=== PATIENT | female | born 1995 | race Caucasian/White ===

== ENCOUNTER 2016-09-29 10:57 | Emergency (ER) | payer BC ==
[~2016-09-29] VITALS: Ht 165.1 cm; Wt 57.0 kg
[2016-09-29 10:58] VITALS: BP 112/69; PULSE 88; RESP 24; TEMP 97.9; O2SAT 100
[2016-09-29] MEDS ORDERED: SODIUM CHLOR 0.9% 1000 ML INJ 1,000 ML IV SCH ×2 (11:23→12:19)
[2016-09-29] MEDS ORDERED: LEXA5TAB PO (11:24)
[2016-09-29] MEDS ORDERED: ADDE20 PO (11:24)
[2016-09-29] MEDS ORDERED: FAMOTIDINE 20 MG/2 ML VIAL IV PUSH ONE (11:30)
[2016-09-29] MEDS ORDERED: ONDANSETRON HCL 4 MG/2 ML VIAL IVP ONE (11:30)
--- NOTE | 2016-09-29 11:31 | PD ---
HPI Chief Complaint: GI Complaint Time Seen by Provider: 11:27 Travel History International Travel<30 days: No Contact w/Intl Traveler<30days: No Traveled to known affect area: No History of Present Illness HPI 21-year-old female that presents to the ED for evaluation of nausea vomiting and alcohol intoxication. Per patient she was at a green party yesterday and she drank "way too much ". Per patient she also smoked pot. She denies any chest pain or shortness of breath. Per patient she doesn't usually do this but throughout the night she's not been able to keep anything down and she continues to throw up which is what brought her here. She states that she has a slight headache. She states that the pain is minimal.She is feels weak and tired. Has no allergies to medication. Has not taken anything for this. She' s been trying to hydrate orally but no success secondary to throwing up. Denies any other drug abuse. Denies any urinary issues. No bowel movement issues. Denies any blood on the vomit. Denies possibility of . PFSH Past Medical History Hx Anticoagulant Therapy: No Cardiovascular Problems: No Chemotherapy: No Cerebrovascular Accident: No Diabetes: No Respiratory: No ?: Not LMP: 09/23/16 Past Surgical History Hysterectomy: No Social History Alcohol Use: Yes Tobacco Use: No Substance Use: No Allergies-Medications (Allergen,Severity, Reaction): Coded Allergies: No Known Allergies (Unverified , 09/29/16) Reported Meds & Prescriptions Reported Meds & Active Scripts Active Zofran (Ondansetron HCl) 4 Mg Tab 4 Mg PO Q6HR PRN Reported Lexapro (Escitalopram Oxalate) 5 Mg Tab 5 Mg PO DAILY Adderall (Amphetamine-Dextroamphetamine) 20 Mg Tab 25 Mg PO DAILY Avoid late evening doses. Space doses at least 4 to 6 hours if more than once/day dosing. Review of Systems Except as stated in HPI: all other systems reviewed are Neg Physical Exam Narrative GENERAL: SKIN: Warm and dry. Patient has puncture like skin rash on the lower legs bilaterally. HEAD: Atraumatic. Normocephalic. EYES: Pupils equal and round. No scleral icterus. No injection or drainage. ENT: No nasal bleeding or discharge. Mucous membranes pink and moist. Tongue is midline. No uvula deviation. NECK: Trachea midline. No JVD. CARDIOVASCULAR: Regular rate and rhythm. No murmurs, S3, S4. RESPIRATORY: No accessory muscle use. Clear to auscultation. Breath sounds equal bilaterally. GASTROINTESTINAL: Abdomen soft, non-tender, nondistended. Hepatic and splenic margins not palpable. MUSCULOSKELETAL: Extremities without clubbing, cyanosis, or edema. No obvious deformities. No lumbar, thoracic, cervical spine tenderness to palpation. Full range of motion of the upper and lower extremities bilaterally. 2+ pulses bilaterally. NEUROLOGICAL: Awake and alert. No obvious cranial nerve deficits. Motor grossly within normal limits. Five out of 5 muscle strength in the arms and legs. Normal speech. PSYCHIATRIC: Appropriate mood and affect; insight and judgment normal. Data Data Last Documented VS Vital Signs Date Time Temp Pulse Resp B/P Pulse Ox O2 Delivery O2 Flow Rate FiO2 09/29/16 10:58 97.9 88 24 112/69 100 Room Air Orders Complete Blood Count With Diff (09/29/16 11:23) Comprehensive Metabolic Panel (09/29/16 11:23) Lipase (09/29/16 11:23) Urinalysis - C+S If Indicated (09/29/16 11:23) Iv Access Insert/Monitor (09/29/16 11:23) Ed Urine Pregnancytest Poc (09/29/16 11:23) Drug Screen, Random Urine (09/29/16 11:23) Alcohol (Ethanol) (09/29/16 11:23) Ondansetron Inj (Zofran Inj) (09/29/16 11:30) Sodium Chlor 0.9% 1000 Ml Inj (Ns 1000 M (09/29/16 11:23) Famotidine Inj (Pepcid Inj) (09/29/16 11:30) Ketorolac Inj (Toradol Inj) (09/29/16 12:15) Sodium Chlor 0.9% 1000 Ml Inj (Ns 1000 M (09/29/16 12:19) Labs Laboratory Tests Test 09/29/16 11:30 White Blood Count 9.7 TH/MM3 Red Blood Count 4.26 MIL/MM3 Hemoglobin 13.1 GM/DL Hematocrit 37.9 % Mean Corpuscular Volume 89.0 FL Mean Corpuscular Hemoglobin 30.7 PG Mean Corpuscular Hemoglobin 34.5 % Concent Red Cell Distribution Width 12.7 % Platelet Count 274 TH/MM3 Mean Platelet Volume 8.7 FL Neutrophils (%) (Auto) 85.7 % Lymphocytes (%) (Auto) 10.3 % Monocytes (%) (Auto) 3.3 % Eosinophils (%) (Auto) 0.1 % Basophils (%) (Auto) 0.6 % Neutrophils # (Auto) 8.3 TH/MM3 Lymphocytes # (Auto) 1.0 TH/MM3 Monocytes # (Auto) 0.3 TH/MM3 Eosinophils # (Auto) 0.0 TH/MM3 Basophils # (Auto) 0.1 TH/MM3 CBC Comment DIFF FINAL Differential Comment Urine Color YELLOW Urine Turbidity CLEAR Urine pH 8.5 Urine Specific [place] 1.017 Urine Protein 30 mg/dL Urine Glucose (UA) NEG mg/dL Urine Ketones NEG mg/dL Urine Occult Blood SMALL Urine Nitrite NEG Urine Bilirubin NEG Urine Urobilinogen LESS THAN 2.0 MG/DL Urine Leukocyte Esterase NEG Urine RBC LESS THAN 1 /hpf Urine WBC 1 /hpf Urine Squamous Epithelial 4 /hpf Cells Urine Renal Epithelial Cells <1 /hpf Urine Mucus FEW /lpf Microscopic Urinalysis Comment CULT NOT INDICATED Sodium Level 140 MEQ/L Potassium Level 3.6 MEQ/L Chloride Level 106 MEQ/L Carbon Dioxide Level 23.0 MEQ/L Anion Gap 11 MEQ/L Blood Urea Nitrogen 9 MG/DL Creatinine 0.74 MG/DL Estimat Glomerular Filtration 98 ML/MIN Rate Random Glucose 109 MG/DL Calcium Level 9.0 MG/DL Total Bilirubin 0.4 MG/DL Aspartate Amino Transf 20 U/L (AST/SGOT) Alanine Aminotransferase 35 U/L (ALT/SGPT) Alkaline Phosphatase 42 U/L Total Protein 7.6 GM/DL Albumin 3.9 GM/DL Lipase 68 U/L Urine Opiates Screen NEG Urine Barbiturates Screen NEG Urine Amphetamines Screen NEG Urine Benzodiazepines Screen NEG Urine Cocaine Screen NEG Urine Cannabinoids Screen NEG Ethyl Alcohol Level LESS THAN 3 MG/DL MDM Medical Decision Making Medical Screen Exam Complete: Yes Emergency Medical Condition: Yes Medical Record Reviewed: Yes Interpretation(s) CBC & BMP Diagram 09/29/16 11:30 Tox negative LFTS WNL UA negative Differential Diagnosis Alcohol withdrawal versus alcohol poisoning versus alcohol intoxication versus hangover versus dehydration versus intractable vomiting versus substance abuse Narrative Course 21-year-old female that presents to the ED for evaluation of nausea vomiting after alcohol use. The patient was properly examined and was found to have signs and symptoms consistent appears to be likely hangover. At this time I recommend labs as well as antiemetics and IV fluids to help with the symptoms. Patient is in agreement with this plan. Labs and imaging showed no sign of acute disease. Patient was reassured. At this time this appears to be vomiting secondary to alcohol intoxication. Patient was reassessed after medications and she does feel very improved. Patient was given a liter of fluids. Patient will be sent home with prescription for Zofran. Patient was console on avoiding alcohol for at least a couple days to a week. See ED worsening symptoms. Follow with PCP. Diagnosis Primary Impression: Alcohol use Additional Impression: Vomiting Qualified Code: R11.2 - Non-intractable vomiting with nausea, unspecified vomiting type Patient Instructions: General Instructions Departure Forms: Tests/Procedures, Work Release Enter return to work date: October 01, 2016 Additional Instructions: Take med as prescribed. F/u with PCP. See ED if worsening symptoms. Drink plenty of fluids. Med/Other Pt SpecificInfo: Prescription(s) given Scripts Ondansetron (Zofran)4 Mg Tab4 Mg PO Q6HR PRN (NAUSEA OR VOMITING) #20 TAB Prov:Constantino Jacobs MD 09/29/16 Disposition: 01 DISCHARGE HOME Condition: Stable Ivan Hawley September 29, 2016 11:31
[2016-09-29 11:44] LABS: AUTOMATED NEUTROPHIL # 8.3 TH/MM3 (1.8-7.7); BASOPHIL # 0.1 TH/MM3 (0-0.2); BASOPHIL % 0.6 % (0.0-2.0); BLOOD, URINE SMALL (NEG); EOSINOPHIL % 0.1 % (0.0-4.0); GLUCOSE,URINE NEG (NEG); HEMATOCRIT 37.9 % (35.0-46.0); HEMO FLAGS DIFF FINAL; KETONE, URINE NEG (NEG); LYMPH % 10.3 % (9.0-44.0); MEAN CORPUSCULAR HEMOGLOBIN 30.7 PG (27.0-34.0); MEAN CORPUSCULAR HGB CONC 34.5 % (32.0-36.0); MONO % 3.3 % (0.0-8.0); MUCUS URINE FEW /lpf (OCC); NEUT % 85.7 % (16.0-70.0); NITRITE,URINE NEG (NEG); PH, URINE 8.5 (5.0-8.5); PLATELET COUNT 274 TH/MM3 (150-450); RED BLOOD COUNT 4.26 MIL/MM3 (4.00-5.30); RED CELL DISTRIBUTION WIDTH 12.7 % (11.6-17.2); RENAL EPITHELIAL CELLS <1 /hpf; SQUAMOUS EPITHELIAL CELL URINE 4 /hpf (0-5); URINE COLOR YELLOW (YELLW/STRAW); WHITE BLOOD COUNT 9.7 TH/MM3 (4.0-11.0)
[2016-09-29 11:45] LABS: COMMENT (UR) CULT NOT INDICATED; CULTURE IF INDICATED CULT NOT INDICATED
[2016-09-29 11:53] LABS: AMPHETAMINE, URINE NEG (NEG); BARBITURATES, URINE NEG (NEG); COCAINE, URINE NEG (NEG)
[2016-09-29 12:09] LABS: ANION GAP 11 MEQ/L (5-15)
[2016-09-29 12:12] LABS: ALKALINE PHOSPHATASE 42 U/L (45-117); ALT (GPT) 35 U/L (10-53); AST (GOT) 20 U/L (15-37); BLOOD UREA NITROGEN 9 MG/DL (7-18); CHLORIDE 106 MEQ/L (98-107); GLOMERULAR FILTRATION RATE 98 ML/MIN (>89); POTASSIUM 3.6 MEQ/L (3.5-5.1); SODIUM (NA) 140 MEQ/L (136-145); TOTAL BILIRUBIN ADULT 0.4 MG/DL (0.2-1.0)
[2016-09-29] MEDS ORDERED: KETOROLAC TROMETHAMINE 30 MG/ML (IVP) VIAL IV PUSH ONE (12:15)
[2016-09-29] MEDS ORDERED: ZOFR4TAB PO (12:36)
[2016-09-29 13:27] VITALS: BP 110/82; PULSE 80; RESP 16; O2SAT 100
== END 2016-09-29 13:30 | disposition home or self-care (01) ==
LOC: NEPD 10:57
DX: R11.2 Nausea with vomiting, unspecified (principal); Z79.899 Other long term (current) drug therapy
CPT/HCPCS: 80053; 80307; 81001; 83690; 84703; 85025; 96361; 96374; 96375; 99284; J1885; J2405; J7030